=== PATIENT | female | born 1955 | race Caucasian/White ===

== ENCOUNTER 2017-08-27 10:07 | Emergency (ER) | payer BC ==
[2017-08-27 10:29] VITALS: BP 111/73
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
--- NOTE | 2017-08-27 11:30 | RAD ---
Indication: Head injury, amnesia. CT of the brain was performed without IV contrast. Ventricular structures are midline. No midline shift is noted. The extra-axial spaces are unremarkable. There is hypodensity in the left middle cranial fossa. There is a defect in the calvaria at this level. This is due to prior surgery. The remainder of the bony structures are otherwise unremarkable aside from a defect in the left temporal bone. IMPRESSION: Hypodensity in the left middle cranial fossa with left craniotomy site likely representing prior surgery and encephalomalacia. No intracranial hemorrhage is noted. Clinical correlation is suggested. No prior study is available for comparison.
== END 2017-08-27 12:37 | disposition home or self-care (01) ==
LOC: UCEAST 10:07
DX: S06.0X9A Concussion with loss of consciousness of unspecified duration, initial encounter (principal); G45.4 Transient global amnesia; S80.812A Abrasion, left lower leg, initial encounter; S60.419A Abrasion of unspecified finger, initial encounter; S40.812A Abrasion of left upper arm, initial encounter; Z88.1 Allergy status to other antibiotic agents; Z91.018 Allergy to other foods; Z91.09 Other allergy status, other than to drugs and biological substances; V89.9XXA Person injured in unspecified vehicle accident, initial encounter; Y93.55 Activity, bike riding; Y92.89 Other specified places as the place of occurrence of the external cause
CPT/HCPCS: 70450; 99213; G0463

== ENCOUNTER 2018-08-19 00:43 | Emergency (ER) | payer BC ==
--- NOTE | 2018-08-19 01:04 | ED ---
Allergic Reaction/Systemic - HPI Summary HPI Summary: This patient is a 63 year old female presenting to [facility] with a chief complaint of allergic reaction. The patient states she woke up and sneezed 4 times. She said it became difficult to breathe, her lip swelled and her hands and eyes became pruritic. The patient states her only relevant allergic reaction is nuts , but she has had no known contact with nuts. - History of Current Complaint Chief Complaint: EDAllergicReaction Time Seen by Provider: 08/19/18 00:56 Hx Obtained From: Patient Hx Last Menstrual Period: menopausal Onset/Duration: Started minutes ago Timing: Lasting Minutes Pain Intensity: 9 Pain Scale Used: 0-10 Numeric Character: Swelling, Pruritus - Allergies/Home Medications Allergies/Adverse Reactions: Allergies Allergy/AdvReac Type Severity Reaction Status Date / Time clindamycin AdvReac Heartburn Verified 08/19/18 00:51 tetracycline AdvReac Nausea Verified 08/19/18 00:51 nuts Allergy Severe anaphylaxis Uncoded 08/19/18 00:51 metals Allergy Mild See Comment Uncoded 08/19/18 00:51 enviromental Allergy Eyes Uncoded 08/19/18 00:51 Itchy/Swollen/Red/Watery walnuts Allergy Anaphylatic Uncoded 08/19/18 00:51 Shock PMH/Surg Hx/FS Hx/Imm Hx Endocrine/Hematology History: Denies: Hx Diabetes, Hx Thyroid Disease Cardiovascular History: Denies: Hx Hypertension, Hx Pacemaker/ICD, Hx Peripheral Vascular Disease GI History: Reports: Other GI Disorders - GERD, HIATAL HERNIA,GASTROPARESIS History: Denies: Hx Dialysis, Hx Renal Disease Musculoskeletal History: Denies: Hx Arthritis, Hx Rheumatoid Arthritis, Hx Osteoporosis, Hx Scoliosis Sensory History: Denies: Hx Cataracts, Hx Contacts or Glasses, Hx Glaucoma, Hx Hearing Aid Opthamlomology History: Denies: Hx Cataracts, Hx Contacts or Glasses, Hx Glaucoma Neurological History: Denies: Hx Headaches, Hx Seizures, Hx Transient Ischemic Attacks (TIA), Other Neuro Impairments/Disorders Psychiatric History: Denies: Hx Anxiety, Hx Depression, Hx Panic Disorder - Cancer History Cancer Type, Location and Year: none Hx Chemotherapy: No Hx Radiation Therapy: No - Surgical History Surgery Procedure, Year, and Place: hip surgery 5 weeks ago. 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 wisdom teeth removal. tonsillectomy. wart removed from foot. cyst removed from lt cheek and chest. LUMBAR SURGERY 2014. WRIST SURGERY Infectious Disease History: No Infectious Disease History: Denies: Traveled Outside the [place] in Last 30 Days - Family History Known Family History: Positive: Cardiac Disease, Hypertension Negative: Diabetes - Social History Alcohol Use: None Substance Use Type: Reports: None Smoking Status (MU): Never Smoked Tobacco Have You Smoked in the Last Year: No Review of Systems Positive: Shortness Of Breath Positive: Other - Pruritus hands and eyes, lip edema All Other Systems Reviewed And Are Negative: Yes Physical Exam - Summary Physical Exam Summary: VITAL SIGNS: Reviewed. GENERAL: Patient is a well-developed and nourished FEMALE who is lying comfortable in the stretcher. Patient is not in any acute respiratory distress. HEAD AND FACE: No signs of trauma. No ecchymosis, hematomas or skull depressions. No sinus tenderness. EYES: PERRLA, EOMI x 2, No injected conjunctiva, no nystagmus. EARS: Hearing grossly intact. Ear canals and tympanic membranes are within normal limits. MOUTH: Mild lip swelling. Mild swelling of the uvula. NECK: Supple, trachea is midline, no adenopathy, no JVD, no carotid bruit, no c- spine tenderness, neck with full ROM CHEST: Symmetric, no tenderness at palpation LUNGS: Clear to auscultation bilaterally. No wheezing or crackles. CVS: Regular rate and rhythm, S1 and S2 present, no murmurs or gallops appreciated. ABDOMEN: Soft, non-tender. No signs of distention. No rebound no guarding, and no masses palpated. Bowel sounds are normal. EXTREMITIES: FROM in all major joints, no edema, no cyanosis or clubbing. NEURO: Alert and oriented x 3. No acute neurological deficits. Speech is normal and follows commands. SKIN: Dry and warm Triage Information Reviewed: Yes Vital Signs On Initial Exam: Initial Vitals Temp Pulse Resp BP Pulse Ox 97.4 F 63 16 125/78 98 08/19/18 00:45 08/19/18 00:45 08/19/18 00:45 08/19/18 00:45 08/19/18 00:45 Vital Signs Reviewed: Yes Diagnostics - Vital Signs Vital Signs Temp Pulse Resp BP Pulse Ox 08/19/18 00:45 97.4 F 63 16 125/78 98 - Laboratory Lab Statement: Any lab studies that have been ordered have been reviewed, and results considered in the medical decision making process. Allergic Reaction Course/Dx - Course Course Of Treatment: This patient is a 63 year old female presenting to [facility] with a chief complaint of allergic reaction. The patient will be treated for the allergic reaction and discharged. A plan for discharge was discussed with the patient and she was agreeable with this plan. - Diagnoses Provider Diagnoses: Allergic reaction Discharge - Sign-Out/Discharge Documenting (check all that apply): Patient Departure - Discharge Patient Received Moderate/Deep Sedation with Procedure: No - Discharge Plan Condition: Stable Disposition: HOME Patient Education Materials: General Allergic Reaction (ED) Referrals: Nayana Jorgensen MD [Primary Care Provider] - Additional Instructions: Return to ED with any new or worsening symptoms. - Attestation Statements Document Initiated by Scribe: Yes Documenting Scribe: Wild Meraz Provider For Whom Scribe is Documenting (Include Credential): Khushbu Parrish MD Scribe Attestation: Wild Lea scribed for Khushbu Parrish MD on 08/19/18 at 0256. Status of Scribe Document: Ready
[2018-08-19] MEDS ORDERED: Albuterol/Ipratropium NEB.SOL* Albuterol 2.5 MG/Ipratropium 0.5 MG 3 ML INH ONE (01:09)
[2018-08-19] MEDS ORDERED: diPHENhydraMINE IV* 50 MG/ML 1 ml VIAL (BENADRYL) SLOW PUSH ONE (01:10)
[2018-08-19] MEDS ORDERED: Famotidine IV* 10 MG/ML 2 ML (20 mg) IV SLOW PU ONE (01:10)
[2018-08-19] MEDS ORDERED: methylPREDNISolone 125 MG* 2 ML VIAL IV ONE (01:10)
[2018-08-19] MEDS ORDERED: Albuterol 2.5 MG/3 ML NEB.SOL* (0.083%) INH ONE (01:10)
[2018-08-19] MEDS ORDERED: NS 0.9% 1000 ML** 1,000 ML IV ONE (01:10)
[2018-08-19 03:22] VITALS: BP 125/74
== END 2018-08-19 03:21 | disposition home or self-care (01) ==
LOC: ED 00:43
DX: T78.40XA Allergy, unspecified, initial encounter (principal); X58.XXXA Exposure to other specified factors, initial encounter; Z88.1 Allergy status to other antibiotic agents
CPT/HCPCS: 96361; 96374; 96375; 99283; A9270-GY; J1200; J2930